=== PATIENT | female | born 2000 | race African-American/Black ===

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

== ENCOUNTER 2018-07-14 12:31 | Emergency (ER) | payer SELFPAY ==
--- NOTE | 2018-07-14 13:29 | ER Document Report ---
ED Medical Screen (RME) - General Chief Complaint: Abdominal Cramping Stated Complaint: ABDOMINAL PAIN Time Seen by Provider: 07/14/18 13:25 Mode of Arrival: Ambulatory Information source: Patient Notes: Patient is an otherwise healthy 17-year-old female who presents with chief complaint of low abdominal cramping and increase in her vaginal discharge. Patient reports that she is approximately 6 weeks . Patient reports she is having increase in clear/white discharge. Patient denies any vaginal bleeding. Patient is a . Exam: Abdomen is soft, nontender, no guarding no rebound. I have greeted and performed a rapid initial assessment of this patient. A comprehensive ED assessment and evaluation of the patient, analysis of test results and completion of the medical decision making process will be conducted by additional ED providers. Dictation of this chart was performed using voice recognition software; therefore, there may be some unintended grammatical errors. TRAVEL OUTSIDE OF THE [place] IN LAST 30 DAYS: No - Related Data Allergies/Adverse Reactions: sulfamethoxazole [From Bactrim] Allergy (Verified 07/14/18 12:32) Hives trimethoprim [From Bactrim] Allergy (Verified 07/14/18 12:32) Past Medical History Renal/ Medical History: Denies: Hx Peritoneal Dialysis Past Surgical History: Reports: Hx Nose Surgery - 2016, Hx Tonsillectomy - adenoids - Immunizations Immunizations up to date: Yes Hx Diphtheria, Pertussis, Tetanus Vaccination: Yes Physical Exam - Vital signs Vitals: Temp Pulse Resp BP Pulse Ox 98.8 F 88 16 104/62 99 07/14/18 12:35 07/14/18 12:35 07/14/18 12:35 07/14/18 12:35 07/14/18 12:35 Course - Vital Signs Vital signs: Temp Pulse Resp BP Pulse Ox 98.8 F 88 16 104/62 99 07/14/18 12:35 07/14/18 12:35 07/14/18 12:35 07/14/18 12:35 07/14/18 12:35 Doctor's Discharge - Discharge Referrals: KEVIN SMALLWOOD MD [Primary Care Provider] - Follow up as needed
[2018-07-14 14:44] LABS: ABSOLUTE EOSINOPHILS # (AUTO) 0.1 10^3/uL (0.0-0.6); ABSOLUTE LYMPHOCYTES (AUTO) 2.8 10^3/uL (0.5-4.7); ABSOLUTE MONOCYTES (AUTO) 0.3 10^3/uL (0.1-1.4); ABSOLUTE NEUT (AUTO) 2.7 10^3/uL (1.7-8.2); APPEARANCE,URINE CLEAR; BASOPHILS % (AUTO) 0.3 % (0-2); BILIRUBIN,URINE NEGATIVE (NEGATIVE); COLOR,URINE STRAW; EOSINOPHILS % (AUTO) 1.4 % (0-6); GLUCOSE, URINE NEGATIVE (NEGATIVE); HEMATOCRIT 37.8 % (36.0-47.0); HEMOGLOBIN 13.5 g/dL (12.0-15.5); KETONES,URINE NEGATIVE (NEGATIVE); LEUKOCYTE ESTERASE,URINE TRACE (NEGATIVE); LYMPHOCYTES % (AUTO) 47.4 % (13-45); MEAN CORPUSCULAR HGB CONC 35.6 g/dL (32.0-36.0); MEAN CORPUSCULAR VOLUME 90 fl (80-97); MONOCYTES % (AUTO) 5.9 % (3-13); NITRITE,URINE NEGATIVE (NEGATIVE); PLATELET COUNT 434 10^3/uL (150-450); PROTEIN,URINE NEGATIVE (NEGATIVE); TOTAL CELLS COUNTED % (AUTO) 100 %; UROBILINOGEN,URINE NEGATIVE mg/dL (<2.0); WHITE BLOOD COUNT 5.9 10^3/uL (4.0-10.5)
--- NOTE | 2018-07-14 16:07 | ER Document Report ---
ED GI/ - General Chief Complaint: Abdominal Cramping Stated Complaint: ABDOMINAL PAIN Time Seen by Provider: 07/14/18 13:25 Mode of Arrival: Ambulatory Information source: Patient Notes: 17-year-old female presents to ED for complaint of pelvic pain mostly to the left side. She states she is 6 weeks . This is her first . States she does have some clear white discharge. Denies any vaginal bleeding. She denies any nausea or vomiting. She is alert and oriented respirations regular and unlabored speaking in full sentences walk with a even steady gait. TRAVEL OUTSIDE OF THE [place] IN LAST 30 DAYS: No - HPI Patient complains to provider of: Pelvic pain, , Vaginal discharge - Right. No: Vaginal bleeding Onset: Other - 2 weeks Timing/Duration: Gradual, Intermittent Quality of pain: Cramping Severity at maximum: Moderate Severity in ED: Moderate Pain Level: 4 Location: Pelvis Vaginal bleeding (Compared to normal period): None Menstrual period history: Associated symptoms: Vaginal discharge - Clear white. denies: Nausea Exacerbated by: Movement, Walking Relieved by: Denies Similar symptoms previously: No Recently seen / treated by doctor: Yes - Related Data Allergies/Adverse Reactions: sulfamethoxazole [From Bactrim] Allergy (Verified 07/14/18 12:32) Hives trimethoprim [From Bactrim] Allergy (Verified 07/14/18 12:32) Past Medical History - General Information source: Patient - Social History Smoking Status: Never Smoker Cigarette use (# per day): No Chew tobacco use (# tins/day): No Smoking Education Provided: No Frequency of alcohol use: None Drug Abuse: None Occupation: no Lives with: Parents Family History: Reviewed & Not Pertinent Patient has suicidal ideation: No Patient has homicidal ideation: No - Past Medical History Cardiac Medical History: Reports: None Pulmonary Medical History: Reports: None EENT Medical History: Reports: None Neurological Medical History: Reports: None Endocrine Medical History: Reports: None Renal/ Medical History: Reports: None Malignancy Medical History: Reports: None GI Medical History: Reports: None Musculoskeletal Medical History: Reports None Skin Medical History: Reports None Psychiatric Medical History: Reports: None Traumatic Medical History: Reports: None Infectious Medical History: Reports: None Past Surgical History: Reports: Hx Adenoidectomy, Hx Nose Surgery - 2016, Hx Tonsillectomy - Immunizations Immunizations up to date: Yes Hx Diphtheria, Pertussis, Tetanus Vaccination: Yes Review of Systems - Review of Systems Constitutional: No symptoms reported EENT: No symptoms reported Cardiovascular: No symptoms reported Respiratory: No symptoms reported Gastrointestinal: No symptoms reported Genitourinary: No symptoms reported Female Genitourinary: Other - pelvic pain left Musculoskeletal: No symptoms reported Skin: No symptoms reported Hematologic/Lymphatic: No symptoms reported Neurological/Psychological: No symptoms reported -: Yes All other systems reviewed and negative Physical Exam - Vital signs Vitals: Temp Pulse Resp BP Pulse Ox 98.8 F 81 16 104/62 99 07/14/18 12:34 07/14/18 12:34 07/14/18 12:34 07/14/18 12:34 07/14/18 12:34 Interpretation: Normal - General General appearance: Appears well, Alert - HEENT Head: Normocephalic, Atraumatic Eyes: Normal Pupils: PERRL - Respiratory Respiratory status: No respiratory distress Chest status: Nontender Breath sounds: Normal Chest palpation: Normal - Cardiovascular Rhythm: Regular Heart sounds: Normal auscultation Murmur: No - Abdominal Inspection: Normal Distension: No distension Bowel sounds: Normal Tenderness: Tender - left pelvic Organomegaly: No organomegaly - Back Back: Normal, Nontender - Extremities General upper extremity: Normal inspection, Nontender, Normal color, Normal ROM , Normal temperature General lower extremity: Normal inspection, Nontender, Normal color, Normal ROM , Normal temperature, Normal weight bearing. No: Kye's sign - Neurological Neuro grossly intact: Yes Cognition: Normal Orientation: AAOx4 Sidon Coma Scale Eye Opening: Spontaneous Hiren Coma Scale Verbal: Oriented [place]on Coma Scale Motor: Obeys Commands Sidon Coma Scale Total: 15 Speech: Normal Motor strength normal: LUE, RUE, LLE, RLE Sensory: Normal - Psychological Associated symptoms: Normal affect, Normal mood - Skin Skin Temperature: Warm Skin Moisture: Dry Skin Color: Normal Course - Re-evaluation Re-evalutation: 07/14/18 17:09 Labs and ultrasound discussed with patient and family and written report of labs and ultrasound given to patient follow-up with a local health department for her . Patient was instructed she would be follow-up blood levels and ultrasound. She does have an ovarian cyst on the left which is where her pain is. Patient was discharged home with instructions for Tylenol for her pain. - Vital Signs Vital signs: Temp Pulse Resp BP Pulse Ox 97.8 F 75 18 106/60 97 07/14/18 17:40 07/14/18 17:40 07/14/18 17:40 07/14/18 17:40 07/14/18 17:40 - Laboratory Result Diagrams: 07/14/18 14:13 07/14/18 14:13 Laboratory results interpreted by me: 07/14/18 07/14/18 07/14/18 14:13 14:13 14:13 Lymphocytes % 47.4 H Beta HCG, Quant 2853.10 H Ur Leukocyte Esterase TRACE H Urine HCG, Qual POSITIVE H - Diagnostic Test Radiology reviewed: Image reviewed, Reports reviewed Discharge - Discharge Clinical Impression: pelvic pain in early , Left ovarian cyst Condition: Stable Disposition: HOME, SELF-CARE Instructions: [facility] Department, Pelvic Pain in ([facility]), ([facility]) Additional Instructions: Ovarian Cyst Your examination shows the presence of an ovarian cyst. This is a ball of fluid attached to the ovary. Ovarian cysts in women of child-bearing age are usually innocent. However, the cyst may cause pain when it grows or bursts. An innocent ovarian cyst will usually go away by itself. When the cyst becomes painful, you should rest. Pain medication may be required. Some women find a hot water bottle soothing. The pain usually resolves within one or two days. After menopause, an ovarian cyst may mean a tumor, and requires more aggressive evaluation -- usually surgery is recommended to remove or biopsy the cyst. A very large cyst requires evaluation at any age. Most cysts (even the innocent ones) require follow-up examination. Call the doctor or return at any time if the pain increases significantly, if you become faint, or if you experience vaginal bleeding. Pelvic Pain in Lower abdominal pain during can have many causes. We look for serious causes such as appendicitis, tubal , miscarriage, placental separation, or urinary tract infection. Less serious causes of pain include corpus luteum cyst (ovarian cyst of ) or stretching of the pelvic tissues by the enlarging uterus. Sometimes the pain comes from the bowels. If no specific cause for the pain is found, we attribute the pain to stretching of the uterine ligaments. This is called "round ligament strain." It is not dangerous. Just rest until the pain goes away. Call us or come back for reexamination if any problems occur, such as: (1) Pain that becomes more severe, steady, or becomes concentrated in one specific area. Also, pain that is more severe with movement or coughing. (2) Vomiting that persists or becomes more frequent. (3) Blood in the vomitus, urine, or bowel movements. Blood in the stool may have a tarry or black appearance. (4) Shaking chills or fever greater than 100 degrees. (5) The abdomen becomes more distended or swollen. (6) Bowel movements cease. (7) Vaginal bleeding. You are . care is best started as early in as possible. If you're unsure about continuing this , you should discuss this with your physician or with wet finisher at [facility]. You should take only medications approved by your physician. Acetaminophen can safely be taken for minor pains. As a rule, medication for chronic conditions such as asthma or seizures can safely be continued. You should discuss with the physician every medicine you take. Any regular exercise program can be continued. Talk to your physician, however, before engaging in competitive or demanding sports. Alcohol, smoking, and "street drugs" are dangerous to your baby. Cocaine is especially dangerous. Don't use any illicit drugs! Acetaminophen Acetaminophen may be taken for pain relief or fever control. It's much safer than aspirin, offering a wider range of "safe" dosages. It is safe during . Some brand names are Tylenol, Panadol, Datril, Anacin 3, Tempra, and Liquiprin. Acetaminophen can be repeated every four hours. The following are maximum recommended dosages: WEIGHT Dose Drops Elixir Chewable( 80mg) (LBS.) drprs=droppers tsp=teaspoon 6 40 mg .4 ml (1/2) 6-11 80 mg .8 ml (full) 1/2 tsp 1 tab 12-16 120 mg 1 1/2 drprs 3/4 tsp 1 1/2 tabs 17-23 160 mg 2 drprs 1 tsp 2 tabs 24-30 240 mg 3 drprs 1 1/2 tsp 3 tabs 30-35 320 mg 2 tsp 4 tabs 36-41 360 mg 2 1/4 tsp 4 1 /2 tabs 42-47 400 mg 2 1/2 tsp 5 tabs 48-53 480 mg 3 tsp 6 tabs 54-59 520 mg 3 1/4 tsp 6 1 /2 tabs 60-64 560 mg 3 1/2 tsp 7 tabs 65-70 600 mg 3 3/4 tsp 7 1 /2 tabs 71-76 640 mg 4 tsp 8 tabs 77-82 720 mg 4 1/2 tsp 9 tabs 83-88 800 mg 5 tsp 10 tabs >89 pounds or adults 650 mg to 900 mg Acetaminophen can be repeated every four hours. Maximum daily dose not to exceed 4000 mg. These maximum recommended dosages are slightly higher than the dosages written on the product container, but these dosages are very safe and well below the toxic dosage for acetaminophen. FOLLOW-UP CARE: If you have been referred to a physician for follow-up care, call the physician s office for an appointment as you were instructed or within the next two days. If you experience worsening or a significant change in your symptoms, notify the physician immediately or return to the Emergency Department at any time for re-evaluation. Referrals: KEVIN SMALLWOOD MD [Primary Care Provider] - Follow up as needed
[2018-07-14 16:20] LABS: ALANINE AMINOTRANSFERASE 16 U/L (5-35); ALBUMIN 4.4 g/dL (3.7-5.6); ALKALINE PHOSPHATASE 65 U/L (50-135); ANION GAP 12 (5-19); ASPARTATE AMINO TRANSFERASE 27 U/L (5-30); BILIRUBIN,DIRECT 0.3 mg/dL (0.0-0.4); BLOOD UREA NITROGEN 8 mg/dL (7-20); CALCIUM 10.1 mg/dL (8.4-10.2); CARBON DIOXIDE 26 mmol/L (22-30); CHLORIDE 100 mmol/L (98-107); GLUCOSE 105 mg/dL (75-110); POTASSIUM 4.2 mmol/L (3.6-5.0); SODIUM 137.7 mmol/L (137-145); TOTAL PROTEIN 7.8 g/dL (6.3-8.2)
--- NOTE | 2018-07-14 16:47 | RADIOLOGY REPORT (SQ) ---
EXAM DESCRIPTION: U/S OB TRANSVAGINAL W/O DOP COMPLETED DATE/TIME: 07/14/2018 4:34 pm REASON FOR STUDY: pelvic pain in COMPARISON: None. TECHNIQUE: Transvaginal static and realtime grayscale images acquired of the pelvis. Additional nj cted spectral and color Doppler images recorded. All images stored on PACs. CLINICAL AGE: 5 week 4 day. bHCG: Not available. LIMITATIONS: None. FINDINGS: UTERUS: No masses. No anomalies. GESTATIONAL SAC: Small for dates. YOLK SAC: No. POLE: None present. RIGHT ADNEXA: Normal ovary with normal vascular flow. No adnexal free fluid. No adnexal masses. LEFT ADNEXA: Normal ovary with normal vascular flow. No adnexal free fluid. 8 mm cyst. FREE FLUID: None. OTHER: No other significant finding. IMPRESSION: POSSIBLE EARLY INTRAUTERINE . BHCG LEVEL NOT AVAILABLE FOR CORRELATION WITH US FINDINGS. CONSIDER F/U BHCG AND/OR ULTRASOUND FOR VERIFICATION AND TO EXCLUDE ECTOPIC . Trimester of : First - 0 to 13 weeks. TECHNICAL DOCUMENTATION: JOB ID: [id number] [employer]- All Rights Reserved Reading location - IP/workstation name: [email or web address]
[2018-07-14 17:41] VITALS: BP 106/60
== END 2018-07-14 17:43 | disposition home or self-care (01) ==
LOC: ER 12:31
DX: O34.81 Maternal care for other abnormalities of pelvic organs, first trimester (principal); N83.202 Unspecified ovarian cyst, left side; O26.891 Other specified pregnancy related conditions, first trimester; R10.9 Unspecified abdominal pain; R10.2 Pelvic and perineal pain; Z3A.01 Less than 8 weeks gestation of pregnancy
CPT/HCPCS: 36415; 76817; 80053; 81001; 81025; 84702; 85025; 99284

== ENCOUNTER 2019-03-07 17:57 | Emergency (ER) | payer MEDICAID ==
--- NOTE | 2019-03-07 18:45 | ER Document Report ---
ED Medical Screen (RME) - General Chief Complaint: Abdominal Cramping Stated Complaint: ABDOMINAL PAIN Time Seen by Provider: 03/07/19 18:41 Primary Care Provider: KEVIN SMALLWOOD MD [Primary Care Provider] - Follow up as needed Mode of Arrival: Ambulatory Information source: Patient Notes: Patient presents to the emergency department with abdominal pain that started yesterday. Patient is last menstrual period January 24. No care yet. G2, P0. Denies vomiting diarrhea. Denies vaginal discharge vaginal bleeding. Denies pain with void. I have greeted and performed a rapid initial assessment of this patient. A comprehensive ED assessment and evaluation of the patient, analysis of test results and completion of the medical decision making process will be conducted by additional ED providers. Dictation of this chart was performed using voice recognition software; therefore, there may be some unintended grammatical errors. TRAVEL OUTSIDE OF THE [place] IN LAST 30 DAYS: No - Related Data Allergies/Adverse Reactions: Penicillins Allergy (Verified 03/07/19 18:06) sulfamethoxazole [From Bactrim] Allergy (Verified 03/07/19 18:06) Hives trimethoprim [From Bactrim] Allergy (Verified 03/07/19 18:06) Past Medical History - Social History Chew tobacco use (# tins/day): No Frequency of alcohol use: None Drug Abuse: None Renal/ Medical History: Denies: Hx Peritoneal Dialysis Past Surgical History: Reports: Hx Adenoidectomy, Hx Nose Surgery - 2016, Hx Tonsillectomy - &adenoids - Immunizations Immunizations up to date: Yes Hx Diphtheria, Pertussis, Tetanus Vaccination: Yes Physical Exam - Vital signs Vitals: Temp Pulse Resp BP Pulse Ox 98.6 F 81 20 120/61 99 03/07/19 18:10 03/07/19 18:10 03/07/19 18:10 03/07/19 18:10 03/07/19 18:10 Course - Vital Signs Vital signs: Temp Pulse Resp BP Pulse Ox 98.6 F 81 20 120/61 99 03/07/19 18:10 03/07/19 18:10 03/07/19 18:10 03/07/19 18:10 03/07/19 18:10 Doctor's Discharge - Discharge Referrals: KEVIN SMALLWOOD MD [Primary Care Provider] - Follow up as needed
[2019-03-07 19:09] LABS: ABSOLUTE EOSINOPHILS # (AUTO) 0.1 10^3/uL (0.0-0.6); ABSOLUTE LYMPHOCYTES (AUTO) 2.8 10^3/uL (0.5-4.7); ABSOLUTE MONOCYTES (AUTO) 0.5 10^3/uL (0.1-1.4); ABSOLUTE NEUT (AUTO) 3.4 10^3/uL (1.7-8.2); BASOPHILS % (AUTO) 0.2 % (0-2); EOSINOPHILS % (AUTO) 1.1 % (0-6); HEMATOCRIT 37.4 % (36.0-47.0); LYMPHOCYTES % (AUTO) 41.2 % (13-45); MEAN CORPUSCULAR HEMOGLOBIN 30.8 pg (27.0-33.4); MEAN CORPUSCULAR HGB CONC 34.9 g/dL (32.0-36.0); MEAN CORPUSCULAR VOLUME 88 fl (80-97); MONOCYTES % (AUTO) 7.8 % (3-13); PLATELET COUNT 399 10^3/uL (150-450); RED BLOOD COUNT 4.23 10^6/uL (3.72-5.28); RED CELL DISTRIBUTION WIDTH 13.7 % (11.5-14.0); SEGMENTED NEUTROPHILS % (AUTO) 49.7 % (42-78); TOTAL CELLS COUNTED % (AUTO) 100 %; WHITE BLOOD COUNT 6.9 10^3/uL (4.0-10.5)
[2019-03-07 19:14] LABS: AMORPHOUS SEDIMENT,URINE TRACE /HPF; APPEARANCE,URINE CLOUDY; BILIRUBIN,URINE NEGATIVE (NEGATIVE); COLOR,URINE YELLOW; GLUCOSE, URINE NEGATIVE (NEGATIVE); KETONES,URINE NEGATIVE (NEGATIVE); LEUKOCYTE ESTERASE,URINE MODERATE (NEGATIVE); NITRITE,URINE NEGATIVE (NEGATIVE); PROTEIN,URINE NEGATIVE (NEGATIVE); URINE SPECIFIC GRAVITY 1.013; UROBILINOGEN,URINE NEGATIVE mg/dL (<2.0)
[2019-03-07 19:27] LABS: ALANINE AMINOTRANSFERASE 22 U/L (9-52); ALBUMIN 4.4 g/dL (3.5-5.0); ALKALINE PHOSPHATASE 62 U/L (38-126); ANION GAP 10 (5-19); ASPARTATE AMINO TRANSFERASE 30 U/L (14-36); BILIRUBIN,DIRECT 0.2 mg/dL (0.0-0.4); BILIRUBIN,TOTAL 0.8 mg/dL (0.2-1.3); BLOOD UREA NITROGEN 10 mg/dL (7-20); CALCIUM 9.7 mg/dL (8.4-10.2); CARBON DIOXIDE 23 mmol/L (22-30); CHLORIDE 103 mmol/L (98-107); GLUCOSE 80 mg/dL (75-110); POTASSIUM 4.1 mmol/L (3.6-5.0); SODIUM 136.1 mmol/L (137-145); TOTAL PROTEIN 7.5 g/dL (6.3-8.2)
--- NOTE | 2019-03-07 22:25 | RADIOLOGY REPORT (SQ) ---
EXAM DESCRIPTION: US TRANSVAGINAL COMPLETED DATE/TME: 03/07/2019 18:43 CLINICAL HISTORY: 18 years, Female, preg, abd pain COMPARISON: None. TECHNIQUE: Emergent OB ultrasound LIMITATIONS: None. FINDINGS: The uterus measures 8.7 x 5.5 x 6.4 cm. There is an intrauterine gestational sac present. Cervical length is 2.1 cm. There is a yolk sac with questionable pole, however there are no detectable heart tones at this time. No visible cardiac motion. 1.9 x 1.1 cm hypoechoic area near the gestational sac could reflect small subchorionic hemorrhage. The gestational sac has a somewhat irregular contour. The right ovary is not visualized. The left ovary measures 2.7 x 1.9 x 1.9 cm. Arterial and venous flow to the right ovary. No adnexal cyst or mass. No free fluid. Current ultrasound age is 6 weeks 2 days based on mean sac diameter of 1.50 cm IMPRESSION: Intrauterine gestational sac which has irregular contour. A yolk sac and pole without detectable heart tones. Ultrasound age is 6 weeks 2 days by mean sac diameter. Findings are concerning for demise. However, close obstetric follow-up is recommended. Correlate with beta hCG levels. copyright 2010 [employer]- All Rights Reserved
--- NOTE | 2019-03-07 23:00 | ER Document Report ---
ED General - General Chief Complaint: Abdominal Cramping Stated Complaint: ABDOMINAL PAIN Time Seen by Provider: 03/07/19 18:41 Primary Care Provider: KEVIN SMALLWOOD MD [Primary Care Provider] - Follow up as needed Mode of Arrival: Ambulatory Notes: Patient is a 18-year-old female G2, P0 at unknown gestational age who presents with lower abdominal cramping. Describes it as a mild, intermittent, aching discomfort to her lower abdomen. No exacerbating or alleviating factors. States this does feel similar to when she had a miscarriage during her previous . She has not had any vaginal bleeding, vaginal discharge or dysuria. No fever or constitutional. Has not yet established care for this . TRAVEL OUTSIDE OF THE [place] IN LAST 30 DAYS: No - Related Data Allergies/Adverse Reactions: Penicillins Allergy (Verified 03/07/19 18:06) sulfamethoxazole [From Bactrim] Allergy (Verified 03/07/19 18:06) Hives trimethoprim [From Bactrim] Allergy (Verified 03/07/19 18:06) Past Medical History - General Information source: Patient - Social History Smoking Status: Never Smoker Chew tobacco use (# tins/day): No Frequency of alcohol use: None Drug Abuse: None Lives with: Family Family History: Reviewed & Not Pertinent Patient has suicidal ideation: No Patient has homicidal ideation: No Renal/ Medical History: Denies: Hx Peritoneal Dialysis Past Surgical History: Reports: Hx Adenoidectomy, Hx Nose Surgery - 2016, Hx Tonsillectomy - &adenoids - Immunizations Immunizations up to date: Yes Hx Diphtheria, Pertussis, Tetanus Vaccination: Yes Review of Systems - Review of Systems Notes: Constitutional: Negative for fever. HENT: Negative for sore throat. Eyes: Negative for visual changes. Cardiovascular: Negative for chest pain. Respiratory: Negative for shortness of breath. Gastrointestinal: Positive for lower abdominal pain Genitourinary: Negative for dysuria. Musculoskeletal: Negative for back pain. Skin: Negative for rash. Neurological: Negative for headaches, weakness or numbness. 10 point ROS negative except as marked above and in HPI. Physical Exam - Vital signs Vitals: Temp Pulse Resp BP Pulse Ox 98.6 F 81 20 120/61 99 03/07/19 18:10 03/07/19 18:10 03/07/19 18:10 03/07/19 18:10 03/07/19 18:10 Interpretation: Normal Notes: PHYSICAL EXAMINATION: GENERAL: Well-appearing, well-nourished and in no acute distress. HEAD: Atraumatic, normocephalic. EYES: Pupils equal round and reactive to light, extraocular movements intact, sclera anicteric, conjunctiva are normal. ENT: nares patent, oropharynx clear without exudates. Moist mucous membranes. NECK: Normal range of motion, supple without lymphadenopathy LUNGS: Breath sounds clear to auscultation bilaterally and equal. No wheezes rales or rhonchi. HEART: Regular rate and rhythm without murmurs ABDOMEN: Soft, nontender, normoactive bowel sounds. No guarding, no rebound. No masses appreciated. EXTREMITIES: Normal range of motion, no pitting or edema. No cyanosis. NEUROLOGICAL: No focal neurological deficits. Moves all extremities spontaneously and on command. PSYCH: Normal mood, normal affect. SKIN: Warm, Dry, normal turgor, no rashes or lesions noted. Course - Re-evaluation Re-evalutation: 03/07/19 22:58 Patient presents with a lower abdominal pain in the setting of an early first trimester . Transvaginal ultrasound shows a probable irregular intrauterine that would likely proceed to miscarriage. Patient has not had any bleeding at home. I have had a conversation with the patient regard ing the probable nature of her proceeding to miscarriage. Patient's abdominal exam is otherwise benign without any focal tenderness. I do not suspect an acute appendicitis, pyelonephritis, cystitis, or bowel obstruction. At this time I have informed the patient that she needs to return to the emergency department or the women's clinic in 48 hours for recheck of her ultrasound. At this time will discharge with return precautions and follow-up recommendations. Verbal discharge instructions given a the bedside and opportunity for questions given. Medication warnings reviewed. Patient is in agreement with this plan and has verbalized understanding of return precautions and the need for primary care follow-up in the next 24-72 hours. - Vital Signs Vital signs: Temp Pulse Resp BP Pulse Ox 98.6 F 81 20 120/61 99 03/07/19 18:10 03/07/19 18:10 03/07/19 18:10 03/07/19 18:10 03/07/19 18:10 - Laboratory Result Diagrams: 03/07/19 18:55 03/07/19 18:55 Laboratory results interpreted by me: 03/07/19 03/07/19 18:50 18:55 Sodium 136.1 L Beta HCG, Quant 99929.00 H Ur Leukocyte Esterase MODERATE H - Diagnostic Test Radiology reviewed: Reports reviewed Discharge - Discharge Clinical Impression: Abnormal in first trimester, Abdominal pain affecting Condition: Good Disposition: HOME, SELF-CARE Additional Instructions: You need to follow-up with your APPLICATION INTEGRATOR in the next 48 to 72 hours for a repeat ultrasound for ongoing assessment of your which at this time does appear to be abnormal and may proceed to a miscarriage. Please return if you develop severe abdominal pain, bleeding that goes through more than 2 pads for more than 2 hours, pass out, or have any other symptoms that are concerning to you. Please follow-up closely with your OBGYN regarding todays visit. Referrals: KEVIN SMALLWOOD MD [Primary Care Provider] - Follow up as needed
[2019-03-07 23:08] VITALS: BP 116/67
== END 2019-03-07 23:08 | disposition home or self-care (01) ==
LOC: ER 17:57
DX: O26.891 Other specified pregnancy related conditions, first trimester (principal); R10.9 Unspecified abdominal pain; R10.30 Lower abdominal pain, unspecified; Z3A.01 Less than 8 weeks gestation of pregnancy
CPT/HCPCS: 36415; 76817; 80053; 81001; 84702; 85025; 99284

== ENCOUNTER 2020-05-21 22:41 | Emergency (ER) | payer MEDICAID, OTHER ==
[2020-05-21 23:08] VITALS: BP 120/74
--- NOTE | 2020-05-21 23:30 | ER Document Report ---
HPI - HPI Time Seen by Provider: 05/21/20 23:18 Pain Level: 0 Context: Patient is a 19-year-old female who presents to the emergency department with a chief complaint of hives to her legs, and back. Patient states that she took Benadryl. States that sometimes goes on every once in a while. States that she has been having these on and off rash flares for the past about month. When she wakes up in the morning, it usually resolves. Patient has history of multiple allergies. Patient does not take any medications for her allergies. Denies any shortness of breath or difficulty breathing. Patient also reports an occasional sore throat/chest pain feeling with these rashes. - ROS Systems Reviewed and Negative: Yes All other systems reviewed and negative - CONSTITUTIONAL Constitutional: DENIES: Fever, Chills - EENT EENT: REPORTS: Sore Throat - NEURO Neurology: DENIES: Headache, Weakness - CARDIOVASCULAR Cardiovascular: REPORTS: Chest pain - see HPI - RESPIRATORY Respiratory: DENIES: Trouble Breathing, Coughing - GASTROINTESTINAL Gastrointestinal: DENIES: Abdominal Pain, Nausea, Patient vomiting - URINARY Urinary: DENIES: Dysuria - MUSCULOSKELETAL Musculoskeletal: DENIES: Extremity pain - DERM Skin Color: Normal Skin Problems: Rash Past Medical History - Social History Smoking Status: Unknown if Ever Smoked Family History: Reviewed & Not Pertinent Patient has homicidal ideation: No Renal/ Medical History: Denies: Hx Peritoneal Dialysis Past Surgical History: Reports: Hx Adenoidectomy, Hx Nose Surgery - 2016, Hx Tonsillectomy - &adenoids - Immunizations Immunizations up to date: Yes Hx Diphtheria, Pertussis, Tetanus Vaccination: Yes Vertical Provider Document - CONSTITUTIONAL Agree With Documented VS: Yes Exam Limitations: No Limitations General Appearance: No Apparent Distress - INFECTION CONTROL TRAVEL OUTSIDE OF THE [place] IN LAST 30 DAYS: No - HEENT HEENT: Atraumatic, Normocephalic, PERRLA - NECK Neck: Normal Inspection - RESPIRATORY Respiratory: Breath Sounds Normal, No Respiratory Distress - CARDIOVASCULAR Cardiovascular: Regular Rate, Regular Rhythm Pulses: Normal: Radial - MUSCULOSKELETAL/EXTREMETIES Musculoskeletal/Extremeties: FROM - NEURO Level of Consciousness: Awake, Alert, Appropriate Motor/Sensory: No Motor Deficit, No Sensory Deficit - DERM Integumentary: Warm, Dry, No Rash Course - Re-evaluation Re-evalutation: 05/21/20 Upon my assessment the patient's hives have resolved with a dose of Benadryl from home. I advised the patient follow-up with an mineral mixer. Also will put the patient on Pepcid. Of the low suspicion for any life-threatening etiology at this time. Lung sounds are clear. Airway is patent. Follow-up precautions were given. Verbal discharge instructions were given to the patient. They verbalized understanding. They are stable for discharge. - Vital Signs Vital signs: Temp Pulse Resp BP Pulse Ox 98.5 F 80 16 120/74 100 05/21/20 23:05 05/21/20 23:05 05/21/20 23:05 05/21/20 23:05 05/21/20 23:05 Discharge - Discharge Clinical Impression: Hives Condition: Stable Disposition: HOME, SELF-CARE Additional Instructions: You were seen today in emergency department for hives. The hives got better with Benadryl. You can continue to take Benadryl. I recommend that you take Claritin every day. Also take Pepcid 20 mg twice a day. Please follow-up with your primary care provider and get a referral to an mineral mixer. Prescriptions: Famotidine [Pepcid 20 mg Tablet] 20 mg PO BID #60 tablet
== END 2020-05-21 23:28 | disposition home or self-care (01) ==
LOC: ER 22:41
DX: L50.9 Urticaria, unspecified (principal)
CPT/HCPCS: 99283